=== PATIENT | male | born 1950 | race Caucasian/White ===

== ENCOUNTER 2016-06-13 08:15 | Emergency (ER) | payer BC, OTHER ==
[~2016-06-13] VITALS: Ht 172.7 cm; Wt 77.8 kg
[~2016-06-13 08:15] MED LIST: ASPI325T39 PO; NAPR1TAB9 PO
[2016-06-13 08:21] VITALS: TEMP 36.8; Ht 172.7 cm; Wt 77.8 kg
[2016-06-13 08:53] LABS: HEMATOCRIT 45.2 % (42-52); MEAN CELL VOLUME 86.4 fL (80-100); MEAN CORPUSCULAR HGB CONC 34.7 g/dl (32-36); MEAN PLATELET VOLUME 9.5 fL (7.4-10.4); PLATELET COUNT 243 K/uL (130-400); RED BLOOD COUNT 5.23 M/uL (4.7-6.1); WHITE BLOOD COUNT 6.21 K/uL (4.8-10.8)
[2016-06-13 09:00] LABS: PARTIAL THROMBOPLASTIN RATIO 1.1
[2016-06-13 09:05] LABS: ALB/GLOB RATIO 1.3 (0.9-2); BUN/CREATININE RATIO 14.4 (10-20); CALCIUM 9.1 mg/dl (8.5-10.1); CKMB/CK RATIO 0.6 (0-3.0); CREATININE 1.5 mg/dl (0.60-1.40); POTASSIUM 4.3 mmol/L (3.5-5.1)
--- NOTE | 2016-06-13 09:07 | DIAGNOSTIC IMAGING REPORT ---
CHEST ONE VIEW PORTABLE CLINICAL HISTORY: CHEST PAIN dyspnea COMPARISON STUDY: No previous studies for comparison. FINDINGS: The bones soft tissues and hemidiaphragms are normal. The cardiomediastinal silhouette is normal. The lungs are clear. The pulmonary vasculature is normal. IMPRESSION: Negative chest. Electronically signed by: Aidan Cleveland M.D. 06/13/2016 9:05 AM Dictated Date/Time: 06/13/2016 9:05 AM
[2016-06-13] MEDS ORDERED: SODIUM CHLORIDE 0.9% 1000ML 1,000 ML IV STA ×2 (09:13→09:17)
[2016-06-13] MEDS ORDERED: OMEP20CA9 PO (09:30)
[2016-06-13 16:21] VITALS: BP 174/100; PULSE 74; O2SAT 98
--- NOTE | 2016-06-13 17:01 | EMERGENCY ROOM VISIT NOTE ---
History First contact with patient: 08:47 Chief Complaint: CHEST PAIN Stated Complaint: MINOR CHEST PAIN Nursing Triage Summary: Patient c/o "some minor chest pain, right in the center" that started 0200. Intermittent. "Dull and achey with maybe on the edge of sharp" Denies nausea, SOB, diphoresis with pain but "I often get night sweats". History of Present Illness The patient is a 65 year old male who presents to the Emergency Room with complaints of central chest discomfort that he knows this morning around 2:30 AM when he got up to go to the bathroom. The patient describes it as a pressure sensation with occasional sharp stabs. He reports that the pain initially was intermittent. He was up for approximately 1.5 hours after that, then went back to bed. He was able to easily fall asleep. When he woke up, the pain was still there. Shortness of breath or significant chest tightness. The patient reports a prior history of chest pain in 1982 while hunting. He had a normal cardiac workup at that time. The patient does have a history of hypertension and heavy smoking as a teenager. He denies any significant family history of coronary artery disease. The patient denies any pain radiating into the back, abdomen, neck, jaw or shoulder. The patient reports that he did golf yesterday. He also had a moderate amount of alcohol. The patient is otherwise healthy and active, and reports hydrating adequately. He does report feeling a little thirsty this morning. Review of Systems HEENT: Denies dizziness, visual problems, hearing loss, tinnitus. Denies difficulty swallowing or oral lesions. PULMONARY: Denies cough, shortness of breath, sputum production or hemoptysis. CARDIOVASCULAR: Denies palpitations, dyspnea on exertion, orthopnea or peripheral edema. Otherwise see history of present illness. GASTROINTESTINAL: Denies diarrhea, constipation, nausea, vomiting, or abdominal pain. GENITOURINARY: Denies dysuria, frequency, urgency or nocturia. NEUROLOGIC: Denies history of epilepsy, CVA, TIA or chronic headaches. MUSCULOSKELETAL: Denies history of joint tenderness/swelling. SKIN: Denies rashes or lesions. PSYCHIATRIC: Denies history of depression or mental illness. ENDOCRINE: Denies history of diabetes or thyroid disorders. Past Medical/Surgical History Medical Problems: (1) Chronic Sinusitis Nos (2) Diverticulosis Colon (W/O Ment Of Hemorrhage) (3) Hypertension Nos Surgical Problems: (1) History of sinus surgery (2) History of tonsillectomy Family History FH: cancer FH: heart disease FH: hypertension FH: lung disease Social History Smoking Status: Former Smoker Alcohol Use: occasionally Marital Status: Housing Status: lives with family Occupation Status: retired Current/Historical Medications Scheduled PRN Omeprazole (Prilosec), 20 MG PO DAILY PRN for GI Upset Allergies Coded Allergies: No Known Allergies (Unverified , 06/13/16) Physical Exam Vital Signs Date Time Temp Pulse Resp B/P Pulse Ox O2 Delivery O2 Flow Rate FiO2 06/13/16 16:21 74 20 174/100 98 Room Air 06/13/16 14:22 65 18 152/102 97 Room Air 06/13/16 12:47 61 18 174/94 96 Room Air 06/13/16 12:28 64 06/13/16 11:29 Room Air 06/13/16 10:51 74 18 130/69 06/13/16 09:46 57 18 165/90 06/13/16 08:49 98 Room Air 06/13/16 08:35 66 06/13/16 08:21 36.8 66 18 219/95 97 Room Air 06/13/16 08:21 97 Room Air Physical Exam CONSTITUTIONAL: Healthy and well nourished. Alert and oriented X 3 with positive affect. Patient does not appear in any acute distress. HEENT: Normocephalic, atraumatic. Pupils equal, round and reactive. NECK: Full active range of motion without discomfort. No JVD or carotid bruits. RESPIRATORY: Clear to auscultation bilaterally with no wheezing, crackles, rhonchi or stridor. CARDIOVASCULAR: Regular rate and rhythm with no murmurs, rubs or gallops. GASTROINTESTINAL: Bowel sounds present in all quadrants. Abdomen is soft and nontender to palpation. No hepatosplenomegaly. MUSCULOSKELETAL: Examination does show mild discomfort to palpation of the left anterior chest wall. He has no worsening discomfort with range of motion of the left shoulder. INTEGUMENTARY: No rash or other significant dermatologic conditions noted. HEMATOLOGIC: No ecchymosis or petechiae noted. NEUROLOGIC: No focal neurologic deficits noted. Medical Decision & Procedures ER Provider Diagnostic Interpretation: My interpretation of an initial ECG shows a normal sinus rhythm of [address] elevation or other conduction abnormalities noted. A repeat ECG at approximately 2 hours again shows the same area of 61 bpm without any changes from previous. My interpretation of a portable chest x-ray does not show any consolidations, pneumothorax or cardiomegaly. Radiologist report is as follows: CHEST ONE VIEW PORTABLE CLINICAL HISTORY: CHEST PAIN dyspnea COMPARISON STUDY: No previous studies for comparison. FINDINGS: The bones soft tissues and hemidiaphragms are normal. The cardiomediastinal silhouette is normal. The lungs are clear. The pulmonary vasculature is normal. IMPRESSION: Negative chest. Laboratory Results 06/13/16 08:30 06/13/16 08:30 Test 06/13/16 08:30 06/13/16 10:05 Red Blood Count 5.23 M/uL (4.7-6.1) Mean Corpuscular Volume 86.4 fL (80-100) Mean Corpuscular Hemoglobin 30.0 pg (25-34) Mean Corpuscular Hemoglobin Concent 34.7 g/dl (32-36) RDW Standard Deviation 42.8 fL (36.4-46.3) RDW Coefficient of Variation 13.5 % (11.5-14.5) Mean Platelet Volume 9.5 fL (7.4-10.4) Prothrombin Time 11.0 SECONDS (9.0-12.0) Prothromb Time International Ratio 1.0 (0.9-1.1) Activated Partial Thromboplast Time 29.4 SECONDS (21.0-31.0) Partial Thromboplastin Ratio 1.1 D-Dimer 220 ug/L FEU (0-500) Anion Gap 8.0 mmol/L (3-11) Est Creatinine Clear Calc Drug Dose 48.8 ml/min Estimated GFR () 56.6 Estimated GFR (Non- 48.8 BUN/Creatinine Ratio 14.4 (10-20) Calcium Level 9.1 mg/dl (8.5-10.1) Total Bilirubin 0.8 mg/dl (0.2-1) Aspartate Amino Transf (AST/SGOT) 21 U/L (15-37) Alanine Aminotransferase (ALT/SGPT) 28 U/L (12-78) Alkaline Phosphatase 67 U/L (45-117) Total Creatine Kinase 109 U/L (39-308) Creatine Kinase MB 0.7 ng/ml (0.5-3.6) Creatine Kinase MB Ratio 0.6 (0-3.0) Total Protein 6.9 gm/dl (6.4-8.2) Albumin 3.9 gm/dl (3.4-5.0) Globulin 3.0 gm/dl (2.5-4.0) Albumin/Globulin Ratio 1.3 (0.9-2) Bedside Troponin I 0.000 ng/ml (0-0.045) The above labs were reviewed. Bedside troponin 2 were normal. Remaining labs are also normal. Medications Administered Medications (Trade) Dose Ordered Sig/Vicente Route Start Time Stop Time Status Last Admin Dose Admin Sodium Chloride (Nss 1000ml) 1,000 ml @ 999 mls/hr Q1H1M STAT IV 06/13/16 09:13 06/13/16 10:13 DC 06/13/16 09:30 999 MLS/HR ED Course Patient history and physical exam were performed. Nurse's notes were reviewed. Vital signs were reviewed, showing a blood pressure of 219/95. O2 saturation , heart rate and temperature are normal. IV access was established, and labs were drawn. An initial ECG and portable chest x-ray were normal. Review of labs were also normal with a normal d-dimer and troponin. Repeat troponin and ECG at 90 and 120 minutes, respectively, were also normal. The case was discussed with Dr. Ponce, ED attending physician, who agrees with current workup. He did suggest discussing the case with Dr. Vega, [facility] cash processor on-call. He did agree to perform a stress echo on the patient. The stress echo was normal. At this point, the patient was advised that his symptoms are likely secondary to a chest wall strain. He was encouraged to alternate ice and heat. Ibuprofen or Tylenol as needed for pain. He was encouraged to limit strenuous activities until symptoms improve. Follow-up with family doctor as needed for any persistent symptoms. Return to the emergency department for any worsening chest pain, diaphoresis, nausea or other concerning symptoms. The patient was happy with plan of care, voice understanding of all discharge instructions, and denied any symptoms at the time of discharge. Medical Decision Patient presents to emergency department with complaint of left central chest pain that started this morning. The patient does have risk factors of hypertension and early tobacco use disorder. The patient denies any history of hyperlipidemia. The patient's initial workup, including cardiac isoenzymes 2 and ECG 2 were normal. His stress echo testing today was normal. At this point, I do not suspect acute coronary syndrome. Because he is reproducible to palpation across the chest wall, I suspect this is a chest wall strain secondary to his golfing activities. Impression Primary Impression: Left-sided chest wall pain Departure Information Referrals No Doctor, Assigned (PCP) [facility] Instructions [facility]
--- NOTE | 2016-06-13 18:05 | EXERCISE STRESS ECHO ---
*NOTICE TO RECEIVING [employer] This information is strictly Confidential and protected under [place] law. [place] law prohibits you from making any further disclosure of this information unless further disclosure is expressly permitted by the written consent of the person to whom it pertains or is authorized by law. A general authorization for the release of medical or other information is not sufficient for this purpose. Hospital accepts no responsibility if the information is made available to any other person, INCLUDING THE PATIENT. Interpretation Summary * Name: MARY SANCHEZ JR Study Date: 06/13/2016 02:16 PM * Patient Location: [facility] * : 1950 (M/d/yyyy) Gender: Male Height: 67 in * Age: 65 yrs Ethnicity: [place] Weight: 171 lb * Ordering Physician: Vinay Awad * Referring Physician: Self, Referred * Performed By: Manish Mauricio RCS * * Reason For Study: Chest Pain * BSA: 1.9 m2 * -- Conclusions -- * Left ventricular systolic function is normal. * Grade I diastolic dysfunction, (abnormal relaxation pattern). * Moderate aortic regurgitation. * Right ventricular systolic pressure is normal. * Mildly dilated ascending aorta. * Mild aortic root dilatation. * Diagnostic exercise echocardiogram without evidence of inducible ischemia Procedure Details * ECHOEX, CPT #[id number] * ECHO COLOR FLOW, CPT #[id number] * ECHO DOPPLER, CPT #[id number] Left Ventricle * The left ventricle is normal in size. * There is normal left ventricular wall thickness. * Ejection Fraction = 60-65%. * Left ventricular systolic function is normal. * Grade I diastolic dysfunction, (abnormal relaxation pattern). * The left ventricular wall motion is normal. Right Ventricle * The right ventricle is normal in size and function. Atria * The left atrial size is normal. * Right atrial size is normal. Mitral Valve * The mitral valve anatomy is normal. * Significant mitral regurgitation is absent. Tricuspid Valve * The tricuspid valve anatomy is normal. * There is mild tricuspid regurgitation. * Right ventricular systolic pressure is normal. Aortic Valve * The aortic valve is trileaflet. * No hemodynamically significant valvular aortic stenosis. * Moderate aortic regurgitation. * There is an eccentric jet of aortic insufficiency directed against the anterior mitral leaflet. Great Vessels * Mild aortic root dilatation. * Mildly dilated ascending aorta. Pericardium * There is no pericardial effusion. Stress Parameters * The stress portion of this study was personally supervised by the undersigned interpreting physician. * Rest heart rate was '66' BPM. * Rest blood pressure was '159/90' * Maximum heart rate achieved was 136 bpm. * Maximum heart rate was 86 % of maximum age-predicted heart rate. * Maximum blood pressure was '206/96' * Total exercise time was '9:00' * Maximum exercise MET level achieved was '10.1' METS * Maximum treadmill speed was '3.4' miles per hour. * Maximum treadmill elevation was '14'% grade. * Exercise was terminated due to 'achieving target heart rate' Left Ventricular Findings with Stress * Normal baseline EKG without changes during exercise Normal baseline echocardiogram without inducible wall motion abnormalities Patient had baeline chest pressure that did not change with exertion Baseline HTN with normal exercise response [place] treadmill score: 5 (low risk) MMode 2D Measurements and Calculations IVSd 1.1 cm IVSs 1.3 cm LVIDd 4.8 cm LVIDs 3.2 cm LVPWd 1.1 cm LVPWs 1.2 cm IVS/LVPW 0.98 FS 33.6 % EDV(Teich) 108.7 ml ESV(Teich) 41.0 ml EF(Teich) 62.3 % EDV(cubed) 112.2 ml ESV(cubed) 32.8 ml EF(cubed) 70.8 % % IVS thick 21.2 % % LVPW thick 9.4 % LV mass(C)d 200.2 grams LV mass(C)dI 105.8 grams/m\S\2 LV mass(C)s 133.9 grams LV mass(C)sI 70.8 grams/m\S\2 CO(Teich) 3.9 l/min CI(Teich) 2.1 l/min/m\S\2 SV(Teich) 67.7 ml SI(Teich) 35.8 ml/m\S\2 CO(cubed) 4.6 l/min CI(cubed) 2.4 l/min/m\S\2 SV(cubed) 79.4 ml SI(cubed) 42.0 ml/m\S\2 Ao root diam 4.2 cm Ao root area 13.7 cm\S\2 ACS 2.5 cm LA dimension 3.4 cm asc Aorta Diam 4.4 cm LA/Ao 0.81 LVAd ap4 43.5 cm\S\2 LVLd ap4 9.2 cm EDV(MOD-sp4) 165.0 ml LVAs ap4 23.5 cm\S\2 LVLs ap4 7.5 cm ESV(MOD-sp4) 64.0 ml EF(MOD-sp4) 61.2 % LVAd ap2 35.1 cm\S\2 LVLd ap2 8.4 cm EDV(MOD-sp2) 124.0 ml LVAs ap2 20.4 cm\S\2 LVLs ap2 7.3 cm ESV(MOD-sp2) 50.0 ml EF(MOD-sp2) 59.7 % CO(MOD-sp4) 5.9 l/min CI(MOD-sp4) 3.1 l/min/m\S\2 SV(MOD-sp4) 101.0 ml SI(MOD-sp4) 53.4 ml/m\S\2 CO(MOD-sp2) 4.3 l/min CI(MOD-sp2) 2.3 l/min/m\S\2 SV(MOD-sp2) 74.0 ml SI(MOD-sp2) 39.1 ml/m\S\2 Doppler Measurements and Calculations MV E max lauren 61.4 cm/sec MV A max lauren 67.2 cm/sec MV E/A 0.91 MV P1/2t max lauren 147.4 cm/sec MV P1/2t 63.2 msec MVA(P1/2t) 3.5 cm\S\2 MV dec slope 682.9 cm/sec\S\2 MV dec time 0.20 sec Ao V2 max 143.9 cm/sec Ao max PG 8.3 mmHg Ao max PG (full) 2.5 mmHg AI max lauren 454.1 cm/sec AI max PG 82.8 mmHg AI dec slope 272.7 cm/sec\S\2 AI P1/2t 487.7 msec LV V1 max PG 5.8 mmHg LV V1 max 120.0 cm/sec PA V2 max 72.1 cm/sec PA max PG 2.1 mmHg PI max lauren 145.4 cm/sec PI max PG 8.5 mmHg PI dec slope 121.2 cm/sec\S\2 PI P1/2t 351.5 msec TR max lauren 203.9 cm/sec
== END 2016-06-13 16:30 | disposition home or self-care (01) ==
LOC: C.EDB 08:16
DX: R07.89 Other chest pain (principal); I10 Essential (primary) hypertension; Z87.891 Personal history of nicotine dependence; Z80.9 Family history of malignant neoplasm, unspecified; Z82.49 Family history of ischemic heart disease and other diseases of the circulatory system